=== PATIENT | female | born 1995 | race Caucasian/White ===

== ENCOUNTER 2018-03-21 18:05 | Emergency (ER) | payer OTHER ==
[~2018-03-21] VITALS: Ht 160 cm; Wt 47.6 kg
[2018-03-21 18:36] LABS: ABSOLUTE BASOPHIL COUNT 0 /CUMM (0.0-0.2); ABSOLUTE EOSINOPHIL COUNT 0 /CUMM (0.0-0.7); ABSOLUTE GRANULOCYTE CT 4.5 /CUMM (1.4-6.5); ABSOLUTE LYMPH COUNT 0.7 /CUMM (1.2-3.4); ABSOLUTE MONOCYTE COUNT 0.6 /CUMM (0.10-0.60); BASOPHIL % 0.7 % (0.0-2.0); EOSINOPHIL % 0.4 % (0-5); GRANULOCYTE % 76.1 % (42.2-75.2); HEMATOCRIT 39.8 % (37-47); MEAN CORPUSCULAR HGB CONC 32.3 G/DL (33.0-37.0); MEAN CORPUSCULAR VOLUME 74.5 FL (81.0-99.0); MEAN PLATELET VOLUME 6.9 FL (7.4-10.4); PLATELET COUNT 582 /CUMM (130-400); RBC DISTRIBUTION WIDTH 17.3 % (11.5-14.5); RED BLOOD CELL CT 5.34 /CUMM (4.20-5.40); WHITE BLOOD CELL COUNT 5.9 /CUMM (4.8-10.8)
--- NOTE | 2018-03-21 19:56 | ED GENERAL ADULT ---
History of Present Illness General Chief Complaint: General Adult Stated Complaint: SPIKED FEVER S/P COLONOSCOPY TODAY Source: patient, old records Exam Limitations: no limitations Vital Signs & Intake/Output Vital Signs & Intake/Output Vital Signs Date Time Temp Pulse Resp B/P B/P Pulse O2 O2 Flow FiO2 Mean Ox Delivery Rate 03/21 2039 101.6 03/21 2039 101.6 03/21 2039 97 Room Air 03/21 2016 102.7 03/21 2008 102.7 127 20 104/49 100 Room Air 03/21 1809 98.7 140 18 104/66 98 Room Air Allergies Coded Allergies: No Known Allergies (03/21/18) Reconcile Medications Ciprofloxacin HCl (Cipro) 500 MG TABLET 1 TAB PO BID uti, crohns Metronidazole (Flagyl) 500 MG TABLET 1 TAB PO TID crohns Triage Note: PT FROM HOME C/O FEVER OF 102.5 SINCE THIS MORNING AFTER COLONOSCOPY. PT STATES SHE WAS FINE TODAY AND THEN BECAME WORRIED WITH THE TEMP, CALLED PCP WHO TOLD PT TO COME TO ER. PT HAS NO OTHER COMPLAINTS BESIDES THE FEVER, AFEBRILE IN TRIAGE 98.7. VSS. PT STATES HX OF CHRONS AND FISTULA THAT IS ACTIVE LOCATED BETWEEN VAGINA AND COLON. SHI Phan IN TRIAGE FOR EVAL. Triage Nurses Notes Reviewed? yes Onset: Just prior to arrival Duration: hour(s):, better, continues in ED Timing: recent history Injury Environment: home Severity: moderate Modifying Factors: Improves With: medication. LMP (ages 10-50): unknown : No Patient currently breastfeeds: No HPI: Several hours prior to admission patient was discharged after colonoscopy and developed fever with shaking chills and chronic right lower quadrant abdominal discomfort no worse than usual. She denies nausea vomiting diarrhea chest pain cough shortness of breath headache dysuria rash bleeding. Past History Travel History Traveled to [place] past 21 day No Medical History Any Pertinent Medical History? see below for history Gastrointestinal: Crohn's disease, FISTULA Surgical History Surgical History: non-contributory Psychosocial History What is your primary language Mexican Tobacco Use: Never used Family History Hx Contributory? No Review of Systems Review of Systems Constitutional: Reports: see HPI, chills, fever, malaise. EENTM: Reports: no symptoms. Respiratory: Reports: no symptoms. Cardiovascular: Reports: no symptoms. GI: Reports: see HPI, abdominal pain. Genitourinary: Reports: no symptoms. Musculoskeletal: Reports: no symptoms. Skin: Reports: no symptoms. Neurological/Psychological: Reports: no symptoms. Hematologic/Endocrine: Reports: no symptoms. Immunologic/Allergic: Reports: no symptoms. All Other Systems: Reviewed and Negative Physical Exam Physical Exam General Appearance: well developed/nourished, alert, awake, anxious, mild distress, thin Head: atraumatic, normal appearance Eyes: Bilateral: normal appearance, PERRL, EOMI. Ears, Nose, Throat: normal pharynx, normal ENT inspection, moist mucus membranes Neck: normal inspection, supple, full range of motion, no midline tenderness Respiratory: normal breath sounds, chest non-tender, no respiratory distress, quiet respiration, lungs clear Cardiovascular: regular rate/rhythm, normal peripheral pulses, norml femoral pulses equa Peripheral Pulses: 4+ carotid (R), 4+ carotid (L) Gastrointestinal: normal bowel sounds, soft, no organomegaly, tenderness (mild) Back: normal inspection, normal range of motion, no vertebral tenderness Extremities: normal inspection, normal capillary refill, normal range of motion, no edema Neurologic/Psych: no motor/sensory deficits, awake, alert, oriented x 3, normal gait, normal mood/affect, business coordinator II-XII nml as tested Reflexes: 2+: bicep (R), bicep (L). Skin: intact, normal color, warm/dry Lymphatic: no anterior cervical leon Core Measures ACS in differential dx? No CVA/TIA Diagnosis: No Sepsis Present: No Sepsis Focused Exam Completed? No Progress Differential Diagnoses I considered the following diagnoses in my evaluation of the patient: UTI pneumonia bacteremia perforated bowel. Plan of Care: Orders Procedure Date/time Status CULTURE,URINE 03/21 1952 Active BLOOD CULTURE 03/21 1952 Active URINALYSIS 03/21 1952 Complete COMPREHENSIVE METABOLIC PANEL 03/21 1812 Complete CBC WITHOUT DIFFERENTIAL 03/21 1812 Complete Current Medications Sig/Rafael Start time Last Medication Dose Stop Time Status Admin Ciprofloxacin 400 MG ONCE ONE 03/21 2130 CAN (Cipro) 03/21 220 Laboratory Tests 03/21/182004: Urine Color YEL, Urine Clarity CLEAR, Urine pH 6.5, Ur Specific [place] 1.010, Urine Protein TRACE H, Urine Ketones NEG, Urine Nitrite NEG, Urine Bilirubin NEG, Urine Urobilinogen 0.2, Ur Leukocyte Esterase MOD H, Ur Microscopic SEDIMENT EXAMINED, Urine RBC 5-10 H, Urine WBC > 75 H, Ur Epithelial Cells MOD H, Urine Bacteria MANY H, Urine Hemoglobin SMALL H, Urine Glucose NEG 03/21/18 1825: Anion Gap 11, Estimated GFR > 60, BUN/Creatinine Ratio 3.8 L, Glucose 127 H, Calcium 8.8, Total Bilirubin 0.5, AST 10 L, ALT 14, Alkaline Phosphatase 67, Total Protein 6.1 L, Albumin 3.0 L, Globulin 3.1, Albumin/Globulin Ratio 1.0 L, CBC w Diff NO MAN DIFF REQ, RBC 5.34, MCV 74.5 L, MCH 24.0 L, MCHC 32.3 L, RDW 17.3 H, MPV 6.9 L, Gran % 76.1 H, Lymphocytes % 11.9 L, Monocytes % 10.9 H, Eosinophils % 0.4, Basophils % 0.7, Absolute Granulocytes 4.5, Absolute Lymphocytes 0.7 L, Absolute Monocytes 0.6, Absolute Eosinophils 0, Absolute Basophils 0 Microbiology 03/21 2005 URINE ROUT: Urine Culture - RECD 03/21 2003 BLOOD: Blood Culture - RECD 03/21 1946 BLOOD: Blood Culture - RECD Diagnostic Imaging: Viewed by Me: Radiology Read, CT Scan. Discussed w/RAD: Radiology Read, CT Scan. Radiology Impression: There is a 15 to 20 cm segment of the ileum that demonstrates thickening and hyperenhancement indicating active inflammation in the patient with a known clinical history of Crohn's disease. Trace presumably reactive fluid layers within the pelvis. No free intraperitoneal air to suggest a perforated viscus. CXR Impression: No evidence for acute disease. Initial ED EKG: none Comments: D/W Dr. Dotson if no free air or significant pathology patient may be discharged home with Cipro and Flagyl, follow up in office tomorrow Departure Departure Disposition: HOME OR SELF CARE Condition: Stable Clinical Impression Primary Impression: Acute Crohn's disease Secondary Impressions: Fever, UTI (urinary tract infection) Referrals: Orquidea Cuenca DO (PCP/Family) Nydia Dotson MD Departure Forms: Customer Survey General Discharge Information Prescriptions: Current Visit Scripts Ciprofloxacin HCl (Cipro) 1 TAB PO BID #20 TAB Metronidazole (Flagyl) 1 TAB PO TID #30 TAB Critical Care Note Critical Care Note Critical Care Time: non-applicable Metronidazole (Flagyl) 1 TAB PO TID #30 TAB
--- NOTE | 2018-03-21 20:56 | CT SCAN REPORT ---
EXAMINATION: CT ABDOMEN AND PELVIS WITH CONTRAST CLINICAL INFORMATION: Question free air status post colonoscopy. COMPARISON: CT enterography 11/03/2017. TECHNIQUE: Multidetector volumetric imaging was performed of the abdomen and pelvis following IV administration of 95 mL of Optiray 320 intravenous contrast. Sagittal and coronal reformatted images were obtained on the technologist's workstation. DLP: 255.87 mGy-cm FINDINGS: LUNG BASES: Lung bases are clear. There is no pleural or pericardial effusion. LIVER, GALLBLADDER, AND BILIARY TREE: Liver attenuation is homogeneous and there is no evidence of a discrete hepatic parenchymal mass. The gallbladder is unremarkable with no evidence of radiopaque gallstones, gallbladder wall thickening, or obvious pericholecystic inflammatory changes. PANCREAS: Unremarkable. SPLEEN: Unremarkable. ADRENAL GLANDS: Unremarkable. KIDNEYS AND URETERS: Kidneys demonstrate symmetric corticomedullary enhancement characteristics. There are a few well marginated low-density lesions presumably representing cysts within the mid to lower pole of the right kidney. No abnormal perinephric inflammation or collection. There is no hydronephrosis. No abnormal mass or calcification along the expected course of the right or left ureter. BLADDER: Unremarkable. GASTROINTESTINAL TRACT: There is a 15 to 20 cm segment of the ileum that demonstrates thickening and enhancement indicating active inflammation in a patient with a known clinical history of Crohn's disease. There is no free intraperitoneal air. Trace fluid layers within the pelvis. No clear evidence of perforation. The stomach and the remainder of the small bowel is unremarkable. The colon is unremarkable. No abnormal perirectal or presacral inflammation. ABDOMINAL WALL: No significant hernia is appreciated. LYMPH NODES: No pathologically enlarged mesenteric or retroperitoneal lymph nodes. VASCULAR: The abdominal aorta and inferior vena cava are unremarkable. PELVIC VISCERA: There is an anteverted uterus. No abnormal adnexal mass. OSSEOUS STRUCTURES: No acute osseous finding. No worrisome lytic or blastic osseous lesion. IMPRESSION: There is a 15 to 20 cm segment of the ileum that demonstrates thickening and hyperenhancement indicating active inflammation in the patient with a known clinical history of Crohn's disease. Trace presumably reactive fluid layers within the pelvis. No free intraperitoneal air to suggest a perforated viscus.
--- NOTE | 2018-03-21 21:01 | RADIOLOGY REPORT ---
EXAMINATION: CHEST 2 VIEWS CLINICAL INFORMATION: Fever. COMPARISON: None. TECHNIQUE: PA and lateral views of the chest were obtained. FINDINGS: The cardiac silhouette is not enlarged. The mediastinal and hilar contours are unremarkable. There are neither pleural effusions nor pneumothoraces. There are no consolidations. There is moderate S-shaped curvature to the thoracic spine. The osseous structures are otherwise unremarkable. IMPRESSION: No evidence for acute disease.
[2018-03-21] MEDS ORDERED: FLAGYL500 MG PO (21:25)
[2018-03-21] MEDS ORDERED: CIPRO500 M1 PO (21:25)
[2018-03-22 00:01] VITALS: BP 108/51
== END 2018-03-22 00:09 ==
LOC: ERH 18:05
PROVIDERS: Physician Assistant Medical
DX: K50.90 Crohn's disease, unspecified, without complications (principal); N39.0 Urinary tract infection, site not specified; R50.9 Fever, unspecified; R10.31 Right lower quadrant pain
CPT/HCPCS: 71046; 74177; 81001; 87040; 87086; 96374; 96375; J0131; J0744; J7060